=== PATIENT | female | born 1955 | race Caucasian/White ===

== ENCOUNTER 2022-12-18 08:28 | Outpatient (CLI) | payer OTHER, SELFPAY ==
[2022-12-18 20:11] LABS: Free T4 Free Thyroxine 1.29 ng/mL (0.78-2.19); Vitamin D 25 Hydroxy 22.2 ng/mL
[2022-12-18 20:23] LABS: Basophils Absolute Auto 0.1 K/mm3 (0.0-0.1); Basophils Percent Auto 0.7 % (0.2-1.2); Eosinophils Absolute Auto 0.5 K/mm3 (0-0.3); Hematocrit 44.8 % (37.0-47.0); Hemoglobin 14.3 g/dL (12.0-15.0); Immature Granulocyte Absolute 0.07 K/mm3 (0.00-0.031); Immature Granulocyte Percent A 0.6 % (0-0.5); Lymphocytes Absolute Auto 3.59 K/mm3 (0.9-3.2); Lymphocytes Percent Auto 30.5 % (18.3-44.2); Mean Corpuscular HGB Conc 31.9 g/dl (32-36); Mean Corpuscular Hemoglobin 30.7 pg (26-34); Mean Corpuscular Volume 96.1 fl (80-100); Mean Platelet Volume 10.8 fl (7.4-10.4); Monocytes Percent Auto 8.2 % (2.6-8.5); Neutrophils Absolute Auto 6.6 K/mm3 (1.3-6.7); Platelet Count Result 309 k/mm3 (150-375); Red Blood Count 4.66 M/mm3 (4.2-5.4); Red Cell Distribution Width 13.5 % (11.5-14.5); White Blood Count 11.8 K/mm3 (4.5-10.0)
[2022-12-18 20:36] LABS: Alanine Aminotransferase 22 U/L (6-35); Alkaline Phosphatase 91 U/L (38-126); Anion Gap 5 mmol/L (8-16); Aspartate Amino Transferase 45 U/L (14-36); Bilirubin,Total 0.5 mg/dL (0.2-1.3); Blood Urea Nitrogen 11 mg/dL (7-17); Calcium 9.8 mg/dL (8.4-10.2); Carbon Dioxide 28 mmol/L (22-30); Chloride 106 mmol/L (98-107); Cholesterol 173 mg/dL (0-200); Estimated Glomerular Filt Rate > 60; Glucose 77 mg/dL (65-110); HDL Direct 41 mg/dL; Potassium 4.5 mmol/L (3.4-5.0); Sodium 139 mmol/L (137-145); Triglycerides 113 mg/dL (<150)
[2022-12-18 20:49] LABS: LDL Cholesterol Direct 104 mg/dL
[2022-12-18 22:28] LABS: Hemoglobin A1C 5.9 % (<5.7)
== END 2022-12-18 08:29 | disposition home or self-care (01) ==
LOC: ANHGOSHLAB 08:30
PROVIDERS: PCP Family Medicine; Visit Provider Family Medicine
DX: E55.9 Vitamin D deficiency, unspecified (principal); R53.83 Other fatigue; Z13.220 Encounter for screening for lipoid disorders; R73.9 Hyperglycemia, unspecified
CPT/HCPCS: 36415; 80053; 80061; 82306; 83036; 84439; 84443; 85025

== ENCOUNTER 2023-04-16 02:15 | Day surgery (SDC) | payer OTHER, SELFPAY ==
[2023-03-31 13:43] VITALS: BMI 29.3
[2023-04-16 11:09] VITALS: BP 160/90; PULSE 75; RESP 20; TEMP 36.5; O2SAT 99; BMI 28.2
[2023-04-16] MEDS: LACTATED RINGERS 1,000 ML 150 ML IV CONT (11:22)
--- NOTE | 2023-04-16 11:35 | PM.HPGS ---
History of Present Illness History of Present Illness Consent: Risks, benefits, and alternatives have been discussed and questions answered. Patient agrees to proceed with procedure. Chief complaint: neoplasm screening Narrative: Tiesha Saucedo is a 67 year old female Presents for screening colonoscopy. Patient's current weight appetite and bowel movements are normal. Patient denies abdominal pain. She has had no bleeding. Family history noncontributory. Review of Systems Review of Systems: Review of systems noncontributory. [facility] Past Medical History Medical History Anxiety Chronic pancreatitis Surgical History Surgical History H/O tubal ligation History of thoracic surgery Hx of rotator cuff surgery Family History Family History Mother Breast cancer Cerebrovascular accident Sibling Alcoholism Thyroid disorder Grandparent Breast cancer Social History Social History Smoking packs per day: 0.5 Smoking cigarettes per day: 10.0 Smoking status: Current every day smoker Tobacco type: cigarettes Additional smoking assessment comments: 1/2 pack per day Alcohol intake: former Substance use: current Substance use type: marijuana Other substance usage details: 2X weekly Lack of Transportation: No Lack of Food: Never True Current Housing: I Have Housing Concerned About Future Housing: No Difficulty Paying Gas/Electric Bills: No Difficulty Paying for Meds: No Currently Unemployed: No Education: High School Diploma/GED Difficulty w/ Childcare or Family Care: No Living arrangements: alone Gender identity (if verbalized by the patient): Female Spiritual care concerns: No Agree to blood products: Yes Meds Home Medications and Allergies Home Medications Medication Instructions Recorded Confirmed Type ergocalciferol (vitamin D2) 1,250 1,250 mcg PO WEEKLY #13 caps 02/19/23 03/31/23 Rx mcg (50,000 unit) capsule Allergies Allergy/AdvReac Type Severity Reaction Status Date / Time No Known Allergies Allergy Verified 04/16/23 11:07 Vital Signs Vital Signs - 24 hr 04/16/23 11:09 Temperature 97.7 F Pulse Rate 75 Respiratory Rate 20 Blood Pressure 160/90 H Pulse Oximetry 99 Oxygen Delivery Room Air Exam Narrative: Physical exam reveals patient to be alert. Vital signs stable. HEENT exam is unremarkable. Patient is anicteric. Lungs are clear to auscultation and percussion. Heart is without murmur or extra sounds. Abdomen bowel sounds are present soft nontender with no organomegaly. Digital external rectal exam is normal. Assessment and Plan Assessment and plan (1) Encounter for screening colonoscopy: Code(s): Z12.11 - Encounter for screening for malignant neoplasm of colon Status: Acute Assessment and Plan: Patient presents today on referral for screening colonoscopy. Further recommendations may be given after endoscopy.
--- NOTE | 2023-04-16 12:08 | WPDANESEPP ---
Anes - Eval Pre Procedure Procedure: Operation Date: 04/16/23 11:30 Proposed Procedures p Screening Colonoscopy - Robby Trujillo MD Date/Time: 04/16/23 12:08 Surgeon: Colonoscopy Pre Op Diagnosis: neoplasm screening Patient Data Age: 67 Gender: F Height: 1.63 m Weight: 74.6 kg Last Vital Signs Temp 97.7 F 04/16/23 11:09 Pulse 75 04/16/23 11:09 Resp 20 04/16/23 11:09 BP 160/90 H 04/16/23 11:09 Pulse Ox 99 04/16/23 11:09 O2 Del Method Room Air 04/16/23 11:09 Allergies Allergy/AdvReac Type Severity Reaction Status Date / Time No Known Allergies Allergy Verified 04/16/23 11:07 Home Medications Medication Instructions Recorded Confirmed Type ergocalciferol (vitamin D2) 1,250 1,250 mcg PO WEEKLY #13 caps 02/19/23 03/31/23 Rx mcg (50,000 unit) capsule Patient hx anesthesia problems: none Family hx anesthesia problems: none Results Review: All pre-operative results and documents have been reviewed as part of the pre-operative evaluation. [facility] Past Medical History Medical History Anxiety Cardiac murmur Chronic pancreatitis GERD (gastroesophageal reflux disease) Surgical History Surgical History H/O tubal ligation History of thoracic surgery Hx of rotator cuff surgery Family History Family History Mother Breast cancer Cerebrovascular accident Sibling Alcoholism Thyroid disorder Grandparent Breast cancer Social History Social History Smoking packs per day: 0.5 Smoking cigarettes per day: 10.0 Smoking status: Current every day smoker Tobacco type: cigarettes Additional smoking assessment comments: 1/2 pack per day Alcohol intake: former Substance use: current Substance use type: marijuana Other substance usage details: 2X weekly Lack of Transportation: No Lack of Food: Never True Current Housing: I Have Housing Concerned About Future Housing: No Difficulty Paying Gas/Electric Bills: No Difficulty Paying for Meds: No Currently Unemployed: No Education: High School Diploma/GED Difficulty w/ Childcare or Family Care: No Living arrangements: alone Gender identity (if verbalized by the patient): Female Spiritual care concerns: No Agree to blood products: Yes Exam Day of Procedure 04/16/23 12:08
--- NOTE | 2023-04-16 12:11 | P.PNAN_ITS ---
Anes - Eval Final PreProcedure Day of Procedure 04/16/23 12:11 Patient weight: normal Heart: regular rate and rhythm Lungs: clear to auscultation Airway: Mallampati scale class II Neurological: alert and oriented Last oral intake: >/= 8 hours ASA classification: III Emergent: no Anesthetic plan: proceed Results Review: All pre-operative results and documents have been reviewed as part of the pre- operative evaluation. Informed Consent: The patient's anesthetic plan and its attendant risks and benefits were discussed with the patient/family/POA. Questions were solicited and answers provided to the satisfaction of the patient/family/POA.
[2023-04-16 12:35] VITALS: BP 129/77; PULSE 74; RESP 20; O2SAT 94
[2023-04-16 12:45] VITALS: BP 144/83; PULSE 77; RESP 20; O2SAT 96
[2023-04-16 12:55] VITALS: BP 145/77; PULSE 70; RESP 25; O2SAT 98
== END 2023-04-16 13:09 | disposition home or self-care (01) ==
PROVIDERS: PCP Family Medicine; Visit Provider Internal Medicine Gastroenterology
PROC: 0DJD8ZZ Inspection of Lower Intestinal Tract, Via Natural or Artificial Opening Endoscopic (ICD-10-PCS; CPT 45378; principal; 2023-04-16 11:30)
DX: Z12.11 Encounter for screening for malignant neoplasm of colon (principal); D12.2 Benign neoplasm of ascending colon; K63.5 Polyp of colon; K57.30 Diverticulosis of large intestine without perforation or abscess without bleeding; K64.8 Other hemorrhoids; F17.210 Nicotine dependence, cigarettes, uncomplicated; F12.90 Cannabis use, unspecified, uncomplicated
CPT/HCPCS: 45385; 88305; J2704; J7120

== ENCOUNTER 2023-04-28 09:03 | Outpatient (CLI) | payer OTHER, SELFPAY ==
--- NOTE | 2023-04-28 | ECHO_ITS ---
Patient Info Name: Tiesha Saucedo Age: 67 years : 1955 Gender: Female Ht: 64 in Wt: 170 lbs BSA: 1.89 m2 HR: 72 bpm BP: 140 / 87 mmHg Heart Rhythm: Sinus Rhythm Technical Quality: Good Exam Date: 04/28/2023 9:40 AM Exam Location: [facility] Patient Status: Outpatient Admit Date: 04/28/2023 Staff Ordering Physician: Afua Tomlinson DO Packing Shed Supervisor: Charlee Arrington RDCS Attending Provider: Afua Tomlinson DO Referring Physician: Davi MCCLAIN; Exam Type: CA echo doppler color flow Study Info Indications - new heart murmur Complete two-dimensional, color flow and Doppler transthoracic echocardiogram is performed. Summary 1. Complete two-dimensional, color flow and Doppler transthoracic echocardiogram is performed. 2. Left ventricular chamber dimension is normal. 3. Left ventricular systolic function is normal, estimated at 60-65%. 4. There is mild concentric increased left ventricular wall thickness. 5. The left ventricular diastolic function is grade I diastolic dysfunction. 6. E/e' 14 is mildly elevated. 7. Left atrial chamber dimension is moderately enlarged. 8. There is mild mitral valve regurgitation. 9. No pulmonary hypertension, estimated pulmonary arterial systolic pressure is 22 mmHg. Left Ventricle E/e' 14 is mildly elevated. Left ventricular chamber dimension is normal. Left ventricular systolic function is normal, estimated at 60-65%. There is mild concentric increased left ventricular wall thickness. The left ventricular diastolic function is grade I diastolic dysfunction. Right Ventricle Right ventricular systolic function is normal and with normal TAPSE 2.9 cm. Right ventricular chamber dimension is normal. Left Atria Left atrial chamber dimension is moderately enlarged. Right Atria Right atrial chamber dimension is normal. Aortic Valve The aortic valve is trileaflet. There is no aortic valve stenosis. There is no aortic valve regurgitation. Pulmonic Valve There is no pulmonic regurgitation. Mitral Valve There is no mitral valve stenosis. There is mild mitral valve regurgitation. Tricuspid Valve There is no tricuspid valve regurgitation. No pulmonary hypertension, estimated pulmonary arterial systolic pressure is 22 mmHg. Pericardium/Pleural There is no pericardial effusion. Inferior Vena Cava Normal inferior vena cava with >50% collapse upon inspiration consistent with normal right atrial pressure, 5 mmHg. Aorta The aortic root size at the sinus of Valsalva is normal. Left Ventricular Outflow Tract Name Value Normal LVOT 2D LVOT Diameter 1.9 cm LVOT Doppler LVOT Peak Gradient 11 mmHg LVOT Mean Gradient 5 mmHg LVOT VTI 33 cm LVOT VTI/AV VTI Ratio 0.9 LVOT Stroke Volume 97 ml LVOT CO 6.1 l/min LVOT CI 3.2 l/min/m2 Pulmonic Valve Name Value Normal
== END 2023-04-28 09:04 | disposition home or self-care (01) ==
PROVIDERS: PCP Family Medicine; Visit Provider Family Medicine
DX: R01.1 Cardiac murmur, unspecified (principal); I34.0 Nonrheumatic mitral (valve) insufficiency
CPT/HCPCS: 93306

== ENCOUNTER → 2023-05-28 10:53 | Outpatient (CLI) | payer OTHER, SELFPAY ==
--- NOTE | ~2023-05-28 | MM_ITS ---
EXAMINATION: MM screening maya BI w basia HISTORY: Screening TECHNIQUE: Craniocaudal and mediolateral oblique 3-D tomosynthesis images were obtained and synthetic 2-D images were generated. CAD analysis was submitted and interpreted. COMPARISON: 03/30/2014 BREAST PARENCHYMAL COMPOSITION: There are scattered areas of fibroglandular density. FINDINGS: There is no evidence of suspicious mass, calcification, or architectural distortion to sugg est malignancy in either breast. There has been no suspicious interval change. IMPRESSION: 1. No mammographic evidence of malignancy. 2. Recommend routine screening mammography in one year. BI-RADS Category 1: Negative Reviewed, dictated and finalized at location A.
--- NOTE | ~2023-05-28 | DEXA_ITS ---
Bone Density Report Name: MARI VILLALOBOS Age: 67 Sex: Female Ethnicity: White Date of : 1955 Indication: postmenopausal; screening for osteoporosis; prior fracture; Referring Provider: TASHA KEENAN Study: Bone densitometry was performed. Exam Date: May 28, 2023 Accession number: [id number] Bone Density: Region BMD T-score Z-score Classification AP Spine (L1-L4) 0.922 -1.1 0.7 Osteopenia Femoral Neck (Left) 0.637 -1.9 -0.4 Osteopenia Total Hip (Left) 0.817 -1.0 0.2 Normal Femoral Neck (Right) 0.641 -1.9 -0.3 Osteopenia Total Hip (Right) 0.808 -1.1 0.2 Osteopenia Total Hip Mean 0.813 -1.1 0.2 Osteopenia World Health Organization criteria for BMD impression classify patients as: Normal (T-score at or above -1.0), Osteopenia (T-score between -1.0 and -2.5), or Osteoporosis (T-score at or below -2.5). 10-year Fracture Risk: FRAX not reported because: Prior hip or vertebral fracture Clinical Information Provided by Patient: Have had a previous hip or vertebral fracture Has had a low trauma fracture Smokes Has used the following medications: Vitamin D Patient maximum height was 64.0 Menopause Age: 52 No regular weight bearing exercise Drinks caffeinated beverages Onset of menses at age 19 Number of children 2 Impression: The patient has low bone mass, based on the Left Femoral Neck T-score. The patient has risk factors, including: smoking, previous fracture. Discussion: INCREASED RISK OF FRACTURE DUE TO HISTORY OF FRACTURE. The patient's previous fracture puts the patient at high risk of a future fracture. In untreated patients, the risk of osteoporotic fracture increases approximately two-fold for each 1.0 SD decrease in T-score. Low bone density is not the only risk factor for fracture; also consider factors such as patient's age, frailty or poor health, risk of falling, risk of injury, previous osteoporotic fracture, family history of osteoporosis, cigarette smoking, low body weight, etc. Not everyone with a low trauma fracture has osteoporosis; osteomalacia and other metabolic bone disorders should also be considered. Patients who have osteoporosis should be evaluated for specific diseases and conditions (secondary causes) that may cause or contribute to bone loss and fracture risk. National Osteoporosis Foundation (NOF) recommends pharmacologic intervention for patients with a prior hip or vertebral fracture regardless of BMD T-score. The patient should follow a healthful lifestyle (good nutrition with adequate calcium and vitamin D, and appropriate weight-bearing exercise). Follow-Up: Consider a repeat BMD and Vertebral Fracture Assessment (VFA) exam in 2 years or sooner if medically necessary, to reassess this patient's status. Reported by: FARNAZ on 05/28/2023 11:27:00 AM.
== END ==
PROVIDERS: PCP Family Medicine; Visit Provider Family Medicine
DX: Z12.31 Encounter for screening mammogram for malignant neoplasm of breast (principal); Z78.0 Asymptomatic menopausal state; M85.88 Other specified disorders of bone density and structure, other site; M85.852 Other specified disorders of bone density and structure, left thigh; M85.851 Other specified disorders of bone density and structure, right thigh
CPT/HCPCS: 77063; 77067; 77080

== ENCOUNTER 2024-01-04 07:55 | Outpatient (CLI) | payer OTHER, SELFPAY ==
[2024-01-04 14:08] LABS: Alanine Aminotransferase 22 U/L (6-35); Alkaline Phosphatase 93 U/L (38-126); Anion Gap 2 mmol/L (8-16); Aspartate Amino Transferase 71 U/L (14-36); Basophils Absolute Auto 0.1 K/mm3 (0.0-0.1); Basophils Percent Auto 0.8 % (0.2-1.2); Bilirubin,Total 0.5 mg/dL (0.2-1.3); Blood Urea Nitrogen 10 mg/dL (7-17); Calcium 9.9 mg/dL (8.4-10.2); Carbon Dioxide 26 mmol/L (22-30); Chloride 108 mmol/L (98-107); Cholesterol 171 mg/dL (0-200); Eosinophils Absolute Auto 0.4 K/mm3 (0-0.3); Estimated Glomerular Filt Rate > 60; Glucose 90 mg/dL (65-110); HDL Direct 40 mg/dL; Hematocrit 45.2 % (37.0-47.0); Hemoglobin 14.5 g/dL (12.0-15.0); Immature Granulocyte Absolute 0.03 K/mm3 (0.00-0.031); Immature Granulocyte Percent A 0.3 % (0-0.5); Lymphocytes Absolute Auto 3.58 K/mm3 (0.9-3.2); Lymphocytes Percent Auto 39.3 % (18.3-44.2); Mean Corpuscular HGB Conc 32.1 g/dl (32-36); Mean Corpuscular Hemoglobin 30.9 pg (26-34); Mean Corpuscular Volume 96.4 fl (80-100); Mean Platelet Volume 10.8 fl (7.4-10.4); Monocytes Absolute Auto 0.7 K/mm3 (0.1-0.6); Neutrophils Absolute Auto 4.3 K/mm3 (1.3-6.7); Neutrophils Percent Auto 47.6 % (45.5-73.1); Platelet Count Result 311 k/mm3 (150-375); Potassium 4.4 mmol/L (3.4-5.0); Red Blood Count 4.69 M/mm3 (4.2-5.4); Red Cell Distribution Width 13.3 % (11.5-14.5); Sodium 136 mmol/L (137-145); Triglycerides 146 mg/dL (<150); White Blood Count 9.1 K/mm3 (4.5-10.0)
[2024-01-04 14:18] LABS: LDL Cholesterol Direct 115 mg/dL
[2024-01-04 15:02] LABS: Free T4 Free Thyroxine 1.12 ng/mL (0.78-2.19); Vitamin D 25 Hydroxy 53.8 ng/mL
== END 2024-01-04 07:56 | disposition home or self-care (01) ==
LOC: ANHGOSHLAB 07:56
PROVIDERS: PCP Family Medicine; Visit Provider Family Medicine
DX: R53.83 Other fatigue (principal); R73.03 Prediabetes; K86.1 Other chronic pancreatitis; E55.9 Vitamin D deficiency, unspecified; Z13.220 Encounter for screening for lipoid disorders; R74.8 Abnormal levels of other serum enzymes
CPT/HCPCS: 36415; 80053; 80061; 82306; 83036; 84439; 84443; 85025

== ENCOUNTER 2024-06-15 08:04 | Outpatient (CLI) | payer OTHER, SELFPAY ==
--- NOTE | ~2024-06-15 | US_ITS ---
US right upper quadrant INDICATION: Abnormal liver function tests. PROCEDURE: Realtime right upper abdominal ultrasound. COMPARISON: No prior studies for comparison. FINDINGS: The pancreas is normal without focal mass or pancreatic ductal dilation. Liver echotexture is normal without focal mass or intrahepatic biliary dilatation. There is normal directional flow i n the portal vein. Gallbladder is contracted limiting evaluation for gallstones or gallbladder wall thickening. Common bile duct measures 4 mm. No sonographic Mota's sign. IMPRESSION: 1: Contracted gallbladder. Otherwise, unremarkable limited abdominal ultrasound. Reviewed, dictated and finalized at location B. IMPRESSION: 1: Contracted gallbladder. Otherwise, unremarkable limited abdominal ultrasound .
--- NOTE | ~2024-06-15 | CT_ITS ---
CT Scan of the Chest without Contrast: Clinical Indication: Lung cancer screening, nicotine dependence Technique: Contiguous sections were acquired throughout the chest without intravenous contrast. Dose reduction technique was used on this scan by utilizing automated exposure control and iterative recon struction technique. The dose-length product (DLP) was 81.37 mGy-cm. Findings: There is no evidence of any significant mediastinal, hilar or axillary lymphadenopathy. There are ath erosclerotic calcifications of the aorta and coronary arteries. Calcified left hilar lymph nodes are present.. There is no evidence of pleural or pericardial effusion. The lungs are clear, aside from linear scarring at the anteromedial right upper lobe. Images through the upper abdomen reveal calcified splenic granulomas. Impression: Lung RADS 1: Negative. 12 month follow-up screening CT advised. Reviewed, dictated and finalized at [facility]. Impression: Lung RADS 1: Negative. 12 month follow-up screening CT advised.
== END 2024-06-15 08:05 | disposition home or self-care (01) ==
LOC: MICIMG 08:05
PROVIDERS: PCP Family Medicine; Visit Provider Nurse Practitioner
DX: R74.8 Abnormal levels of other serum enzymes (principal); Z87.891 Personal history of nicotine dependence
CPT/HCPCS: 71271; 76705

== ENCOUNTER 2024-10-28 07:52 | Outpatient (CLI) | payer OTHER, SELFPAY ==
[2024-10-28 18:01] LABS: Alanine Aminotransferase 25 U/L (6-35); Albumin Level 4.3 g/dL (3.5-5.1); Alkaline Phosphatase 106 U/L (38-126); Anion Gap 10 mmol/L (4-12); Aspartate Amino Transferase 44 U/L (14-36); Bilirubin,Total 0.5 mg/dL (0.2-1.3); Blood Urea Nitrogen 15 mg/dL (7-17); Carbon Dioxide 24 mmol/L (22-30); Chloride 102 mmol/L (98-107); Estimated Glomerular Filt Rate > 60; Glucose 86 mg/dL (65-110); Potassium 4.3 mmol/L (3.4-5.0); Sodium 136 mmol/L (137-145)
[2024-10-28 18:28] LABS: Hepatitis B Surface Antigen Negative (Negative)
[2024-10-28 18:45] LABS: Hepatitis C Virus Antibody Negative (Negative)
[2024-10-28 18:52] LABS: Iron 93 ug/dL (37-170)
[2024-10-28 19:02] LABS: Percent Iron Saturation 24 % (20-50)
[2024-10-28 20:58] LABS: HIV 1/2 Ab P24 Ag Result Negative (Negative)
[2024-10-31 20:24] LABS: Immunoglobulin A 116 mg/dL (70-320); TTG IGA AB <1.0 U/mL
--- OUTSIDE RECORDS SUMMARY | 2024-11-03 05:12 | XMS_ITS | Clinical Summary ---
Author Organization [facility] Address [address] [place] [id number] Care Team Providers Care Mounter Clarinets Name Role Phone Afua Tomlinson Primary Care Provider + Allergies No known active allergies Medications ergocalciferol (VITAMIN D) 50,000 unit capsule Take 1 capsule (50,000 Units total) by mouth once a week 3 Active pancrelipase (Creon) 36,000 units of lipase capsuleIndications :exocrine pancreatic insufficiency Take 2 capsules by mouth 3 (three) times a day with meals 2 capsules with meals, 1 with snacks 240 capsule 11 4 Active Active Problems Problem Noted Date Diagnosed Date Chronic pancreatitis ([facility]) 11/09/2023 Steatorrhea 11/09/2023 Immunizations Name Administration Dates Next Due Influenza, Quad, Adjuvantated, Intramuscular Influenza, Quadrivalent, Split, Intramuscular ,07/30/2016 Influenza, Quadrivalent, Spl it, Preservative Free, Intramuscular 08/06/2020 Influenza, Trivalent, Preservative Free, Intramu scular 10/14/2013 Pneumococcal Conjugate Pcv20 03/05/2023 ZOSTER Recombinant 03/05/2023 Social History Tobacco Use Types Packs/Day Years Used Date Smoking Tobacco: Every Day Cigarettes Tobacco Cessation:Ready to Q uit: Not Asked; Counseling Given: Not Answered Personal Safety Answer Date Recorded Getting School Help Needed Not on file 11/03 Comments No Sex and Gender Information Value Date Recorded Sex Assigned at Not on file Legal Sex Female 7:02 PM ABSTRACT SEARCHER Gender Identity Not on file Sexual Orientation Not on file Obstetrics History Last Filed Vital Signs Vital Sign Reading Time Taken Comments Blood Pressure 146/71 11/05/2023 2:12 PM ABSTRACT SEARCHER Pulse 83 11/05/2023 2:12 PM ABSTRACT SEARCHER Temperature - - Respiratory Rate - - Oxygen Saturation - - Inhaled Oxygen Concentration - - Weight 77.4 kg (170 lb 9.6 oz) 11/05/2023 2:12 P M ABSTRACT SEARCHER Height 162.6 cm (5' 4 ) 11/05/2023 2:12 PM ABSTRACT SEARCHER Body Mass Index 29.28 11/05/2023 2:12 PM ABSTRACT SEARCHER Plan of Treatment Health Maintenance Due Date Last Done Comments Breast Cancer Screening-Mammogram 1955 Colon Cancer Screening-Colonoscopy 1955 Depression Screening 1955 Fall Risk Assessment 1955 Hepatitis C Screening 1955 Osteoporosis Screening-Bone Density Scan 1955 DTaP/Tdap/Td Vaccine (1 - Tdap) 1968 Hepatitis B Screening 1975 Well Visit 65+ 2022 Zoster Vaccine (2 of 2) 04/30/2023 03/05/2023 Covid-19 Vaccine (4 - 2023-2 5 season) 2024 09/10/2022, 11/01/2021, 12/16/2020 Influenza Vaccine (#1) 2024 , 08/06/2020, 09/26/2019, Additional history exists Pneumococcal vaccine 65+ Completed 03/05/2023 Insurance [facility] [place] [facility] [place] Care Teams Mounter Clarinets Relationship Specialty Start Date End Date Afua Tomlinson DO [address] [place] [address] [id number] PCP - General Family Medicine 11/05/23
--- OUTSIDE RECORDS SUMMARY | 2024-11-03 05:12 | XMS_ITS | Patient Health Summary ---
Author Organization [facility] Address [address] [place] [address] Care Team Providers Care Solid Waste Engineer Name Role Phone Robel PARKER MD, Rob Chavez Primary Care Provider [phone] [facility],non-owned Affiliates and Associated Physician Practices is amultiple site organization consisting of ambulatory clinics and hospital sitesin [place], [place], [place] and [place]. This disclosure is being madepursuant to the Care Everywhere program and may not contain all information available regarding this patient. Last updated 18.[facility] [employer] Allergies No known active allergies Medications * Be aware that medications may not be up to date on this document. Alwaysverify current medications with the patient. * multivitamin daily (THERAGRAN) tablet Take 1 Tab by mouth daily with food. * fish oil/omega-3 fatty acids (FISH OIL) 1000 MG capsule Take 1000 mg by mouth daily. * Other Take 1 Tab by mouth daily. Vit B complex * vitamin C (ASCORBIC ACID) 500 MG tablet Take 500 mg by mouth daily. * Other Take 2 Tabs by mouth 2 times daily. 1000 mg AM and PM * calcium-vitamin D (CALTRATE PLUS D) 600-200 MG-UNIT tablet Take 1 Tab by mouth 2 times daily. Social History Tobacco Use Types Packs/Day Years Used Date Smoking Tobacco: Every Day Cigarettes 1 35 Alcohol Use Standard Drinks/Week Comments No 0 (1 standard drink = 0.6 oz pur e alcohol) Sex and Gender Information Value Date Recorded Sex Assigned at Not on file Gender Identity Not on file Sexual Orientation Not on file Last Filed Vital Signs Vital Sign Reading Time Taken Comments Blood Pressure 114/59 04/02/2010 10:48 AM CDT Pulse 62 04/02/2010 10:48 AM CDT Temperature 35.9 ??C (96.7 ??F) 04/02/2010 7:00 AM CD T Respiratory Rate - - Oxygen Saturation 93% 04/02/2010 10:48 AM CDT Inhaled Oxygen Concentration - - Weight 77.1 kg (170 lb) 04/02/2010 7:00 AM CDT Height 162.6 cm (5' 4 ) 04/01/2010 8:38 AM CDT Body Mass Index 29.18 04/01/2010 8:38 AM CDT Procedures * GROSS + MICRO EXAM(Performed 04/02/2010) * GROSS + MICRO EXAM(Performed 04/02/2010) Performed for Screen Malig Neop-Colon * US BREAST LEFT COMPLETE(Performed 03/27/2010) Performed for Lump or Mass in Breast * MAMMO BILAT DIAGNOSTIC(Performed 03/27/2010) Performed for Lump or Mass in Breast * GROSS + MICRO EXAM(Performed 02/14/2004) * GROSS + MICRO EXAM(Performed 05/12/1998) * CYTOLOGY NON-TACK PULLER MACHINE PANEL(Performed 05/09/1998) * GROSS + MICRO EXAM(Performed 05/09/1998) Results * GROSS + MICRO EXAM (04/02/2010 12:00 AM CDT) Only the most recent of5 resultswithin the time period is included. Result CASE NUMBER [id number] Comment: ORDERING PHYSICIAN ??FREIDA KENNEDY SPECIMEN TYPE ?Polyp Splenic Flexu Date ? 04/02/2010 Physician ?Massiel Kennedy Gross Description ? The specimen is received in two Formalin containers labeled with the patient's name, Tiesha Saucedo. The first container is labeled polyp, splenic flexure, and consists of one yellow cerda soft tissue fragment measuring 0.2 cm in the largest dimension. ??The specimen is inked, wrapped, and submitted entirely in cassette A. The second container is labeled polyp, sigmoid colon, and consists of one yellow cerda soft tissue fragment measuring 0.2 cm in the largest dimension. ??Additionally, several smaller fragments measuring <0.1 cm in the largest dimension are also present in the same container. ??The specimen is filtered, inked, wrapped, and submitted entirely in cassette B. MD elias Microscopic Exam ? Nos. 1 and 2 Sections show fragments of colonic mucosa with features of hyperplastic polyp. ??No atypia or malignancy is seen. ??Specimen No. 1 shows considerable biopsy artifact. MC/db Diagnosis ? I. ?Splenic flexure, biopsy -- ?Hyperplastic polyp II. ?? Sigmoid colon, polyp, biopsy -- ?Hyperplastic polyp MC/db Quality Checker ? db Pathologist ?Derick Robertson MD Snomed. ?04/03/2010 1058 <2> CPT code ? 71142 x 2 MISCELLANEOUS SAMPLE S / Unknown 04/02/2010 04/02/2010 1:56 PM CDT Historical Provider LAB - PATHOLOGY/C YTOLOGY ORDERABLES * US BREAST UNILATERAL LEFT (03/27/2010 10:45 AM CDT) Anatomical Region Laterality Modality Breast Left Ultrasound 03/27/2010 10:5 3 AM CDT Narrative 03/28/2010 9:52 AM CDT EXAMINATION: Bilateral digital diagnostic mammogram and left breast sonogram on 03/27/2010. INDICATION: Palpable left breasts lump. Routine mammogram right breast. TURBO OPERATOR: Rhianna Sen RT, RM FINDINGS: Computer assisted detection was ??utilized. ??The tissue density is dense. Three views of each breast are obtained including the spot compression views of the left breast with a marker at the 6:00 position of the left breast. There is no discrete mass seen at the areas of clinical concern near the marker. I do not see a suspicious mass, suspicious calcification or architectural distortion in either breast. In view of the patient's history, sonogram of the left breast is performed. There is no mass or a lesion seen at the 6:00 position which is the area of clinical concern. There is no solid or cystic mass or suspicious lesion present in the left breast. ASSESSMENT: BIRADS Category 1: ?? Negative mammogram. RECOMMENDATION: Bilateral mammogram in one year. [facility] staff will contact and schedule patients with BIRADS categories 0, 4, and 5. Procedure Note Elana Yip MD / Zonia Kenny (Ce) - 03/27/2010 EXAMINATION: Bilateral digital diagnostic mammogram and left breast sonogram on 03/27/2010. INDICATION: Palpable left breasts lump. Routine mammogram right breast. TURBO OPERATOR: Rhianna Sen RT, RM FINDINGS: Computer assisted detection was utilized. The tissue density is dense. Three views of each breast are obtained including the spot compression views of the left breast with a marker at the 6:00 position of the left breast. There is no discrete mass seen at the areas of clinical concern near the marker. I do not see a suspicious mass, suspicious calcification or architectural distortion in either breast. In view of the patient's history, sonogram of the left breast is performed. There is no mass or a lesion seen at the 6:00 position which is the area of clinical concern. There is no solid or cystic mass or suspicious lesion present in the left breast. ASSESSMENT: BIRADS Category 1: Negative mammogram. RECOMMENDATION: Bilateral mammogram in one year. [facility] staff will contact and schedule patients with BIRADS categories 0, 4, and 5. Che Kamara MD US ORDERABLES * G0204 ARYAN DIAG DIRECT DIG IMAGE BILATERAL (03/27/2010 10:42 AM CDT) Anatomical Region Laterality Modality Bilateral Mammography 03/27/2010 10:5 3 AM CDT Narrative 03/28/2010 9:51 AM CDT EXAMINATION: Bilateral digital diagnostic mammogram and left breast sonogram on 03/27/2010. INDICATION: Palpable left breasts lump. Routine mammogram right breast. TURBO OPERATOR: RT Nicky, RM FINDINGS: Computer assisted detection was ??utilized. ??The tissue density is dense. Three views of each breast are obtained including the spot compression views of the left breast with a marker at the 6:00 position of the left breast. There is no discrete mass seen at the areas of clinical concern near the marker. I do not see a suspicious mass, suspicious calcification or architectural distortion in either breast. In view of the patient's history, sonogram of the left breast is performed. There is no mass or a lesion seen at the 6:00 position which is the area of clinical concern. There is no solid or cystic mass or suspicious lesion present in the left breast. ASSESSMENT: BIRADS Category 1: ?? Negative mammogram. RECOMMENDATION: Bilateral mammogram in one year. [facility] staff will contact and schedule patients with BIRADS categories 0, 4, and 5. Procedure Note Elana Yip MD / Zonia Kenny (Ce) - 03/28/2010 EXAMINATION: Bilateral digital diagnostic mammogram and left breast sonogram on 03/27/2010. INDICATION: Palpable left breasts lump. Routine mammogram right breast. TURBO OPERATOR: RT Nicky, RM FINDINGS: Computer assisted detection was utilized. The tissue density is dense. Three views of each breast are obtained including the spot compression views of the left breast with a marker at the 6:00 position of the left breast. There is no discrete mass seen at the areas of clinical concern near the marker. I do not see a suspicious mass, suspicious calcification or architectural distortion in either breast. In view of the patient's history, sonogram of the left breast is performed. There is no mass or a lesion seen at the 6:00 position which is the area of clinical concern. There is no solid or cystic mass or suspicious lesion present in the left breast. ASSESSMENT: BIRADS Category 1: Negative mammogram. RECOMMENDATION: Bilateral mammogram in one year. [facility] staff will contact and schedule patients with BIRADS categories 0, 4, and 5. Che Kamara MD MAMMO ORDERAB LES * CYTOLOGY NON-TACK PULLER MACHINE PANEL (05/09/1998 3:43 PM CDT) Result CASE NUMBER [id number] Comment: ORDERING PHYSICIAN ??ROB ONOFRE SPECIMEN TYPE ?Fluid-rt Date ? 05/09/1998 Physician ?Mihir Specimen Adequacy ?Satisfactory for Evaluation but Limited Obscuring inflammation. *Diagnosis ? Negative ??abundant WBC's. *Comment ? 5.5 cc. of milky, yellow fluid. 2 slides made. Snomed. ?05/18/1998 1638 <1> Pathologist ?Kyler Page M.D. MISCELLANEOUS SAMPLES / Unknown 05/09/1998 3:43 PM CDT 05/09/1998 3:43 PM CDT Historical Provider LAB - PATHOLOGY/C YTOLOGY ORDERABLES Care Teams Solid Waste Engineer Relationship Specialty Start Date End Date Rob Huston III, MD [address] [place] [id number] PCP - General 04/02/10
--- OUTSIDE RECORDS SUMMARY | 2024-11-03 05:12 | XMS_ITS | Clinical Summary ---
Author Organization [facility] Address [address] [place] [address] Care Team Providers Care Mine Wirer Name Role Phone Robel PARKER MD, Jarred Chavez Primary Care Provider [phone] Source Comments [facility],non-owned Affiliates and Associated Physician Practices is amultiple site organization consisting of ambulatory clinics and hospital sitesin [place], [place], [place] and [place]. This disclosure is being madepursuant to the Care Everywhere program and may not contain all information available regarding this patient. Last updated 18.[facility] Allergies No known active allergies Medications * Be aware that medications may not be up to date on this document. Alwaysverify current medications with the patient. Medication Sig Dispensed Refills Start Date End Date Status multivitamin daily (THERAGRAN) tablet Take 1 Tab by mouth daily with food. Active fish oil/omega-3 fatty acids (FISH OIL) 1000 MG capsule Take 1000 mg by mouth daily. Active Other Take 1 Tab by mouth daily. Vit B complex Active vitamin C (ASCORBIC ACID) 500 MG tablet Take 500 mg by mouth daily. Active Other Take 2 Tabs by mouth 2 times daily. 1000 mg AM and PM Active calcium-vitamin D (CALTRATE PLUS D) 600-200 MG-UNIT tablet Take 1 Tab by mouth 2 times daily. Active Family History Medical History Relation Name Comments Cancer Mother breast Relation Name Status Comments Mother Social History Tobacco Use Types Packs/Day Years [...] Mass Index 29.18 04/01/2010 8:38 AM CDT Plan of Treatment Health Maintenance Due Date Last Done Comments BONE DENSITY TESTING 1955 COLOGUARD (AGES 45-75) - COL ON CA SCREENING 1957 COLON MONITORING 1957 COLONOSCOPY - COLON CA SCREENING 1957 CT COLONOGRAPHY - COLON CA SCREENING 1957 Colorectal Cancer Screening 1957 FIT - COLON CA SCREENING 1957 FLEX SIG - COLON CA SCREENING 1957 LIPID TESTING 1957 HEPATITIS C SCREENING 08/17/1975 DTAP/TDAP/TD VACCINES (1 - Tdap) 1976 PNEUMOCOCCAL VACCINE 50+ (1 of 2 - PCV) 1976 ZOSTER VACCINE (1 of 2) 2007 MAMMOGRAM 03/27/2012 03/27/2010 COVID-19 VACCINE ( - 2023-2 5 season) 2024 INFLUENZA VACCINE (#1) 2024 DEPRESSION SCREENING 10/12/2024 MEDICARE AWV ? CALENDAR YEAR 2024 Respiratory Syncytial Virus (RSV) Vaccine Pt: or over 60 yrs (1 - 1-dose 75+ series) 2032 HEPATITIS B VACCINE Aged Out No longe r eligible based on patient's age to complete this topic HIB VACCINE Aged Out No longer eligi ble based on patient's age to complete this topic HPV VACCINE Aged Out No longer eligi ble based on patient's age to complete this topic MENINGOCOCCAL (Group B) VACCINE Aged Out No longer eligible based on patient's age to complete this topic MENINGOCOCCAL VACCINE Aged Out No jennifer joaquin eligible based on patient's age to complete this topic Procedures Procedure Name Priority Date/Time Associated Diagnosis Comments MAMMO BILAT DIAGNOSTIC Routine 03/27/2010 10:42 AM CDT Lump or Mass in Breast from Last 3 Months or Most Recently Relevant to Health Maintenance Results * G0204 ARYAN DIAG DIRECT DIG IMAGE BILATERAL (03/27/2010 10:42 AM CDT) Anatomical Region Laterality Modality Bilateral Mammography 03/27/2010 10:5 3 AM CDT Narrative 03/28/2010 9:51 AM CDT EXAMINATION: Bilateral digital diagnostic mammogram and left breast sonogram on 03/27/2010. INDICATION: Palpable left breasts lump. Routine mammogram right breast. SCHOOL BUS OPERATOR: RT Nicky, RM FINDINGS: Computer assisted [...] mammogram. RECOMMENDATION: Bilateral mammogram in one year. [facility] staff will contact and schedule patients with BIRADS categories 0, 4, and 5. Procedure Note Elana Yip MD / Zonia Kenny (Ce) - 03/28/2010 EXAMINATION: Bilateral digital diagnostic mammogram and left breast sonogram on 03/27/2010. INDICATION: Palpable left breasts lump. Routine mammogram right breast. SCHOOL BUS OPERATOR: RT Nicky, RM FINDINGS: Computer assisted [...] mammogram. RECOMMENDATION: Bilateral mammogram in one year. [facility] staff will contact and schedule patients with BIRADS categories 0, 4, and 5. Che Kamara MD MAMMO ORDERAB LES from Last 3 Months or Most Recently Relevant to Health Maintenance Care Teams Mine Wirer Relationship Specialty Start Date End Date Jarred Huston III, MD [address] [place] [address] PCP - General 04/02/10
--- OUTSIDE RECORDS SUMMARY | 2024-11-03 05:12 | XMS_ITS | Referral Summary ---
Author Organization [facility] Address [address] [address] Care Team Providers Care Operations Mgr Name Role Phone Robel PARKER MD, Jarred Chavez Primary Care Provider [phone] Source Comments [facility] [employer],non-owned Affiliates and Associated Physician Practices is amultiple site organization consisting of ambulatory clinics and hospital sitesin [place], [place], [place] and [place]. This disclosure is being madepursuant to the Care Everywhere program and may not contain all information available regarding this patient. Last updated 18.[facility] [employer] Allergies No known active allergies Medications * [...] Tab by mouth 2 times daily. Active Social History Tobacco Use Types Packs/Day Years [...] 04/01/2010 8:38 AM CDT Plan of Treatment Not on file Procedures Procedure Name Priority Date/Time Associated Diagnosis [...] left breasts lump. Routine mammogram right breast. CLAIMS ADJUSTER: Rhianna Sen RT, RM FINDINGS: Computer assisted [...] mammogram. RECOMMENDATION: Bilateral mammogram in one year. [facility] staff will contact and schedule patients with BIRADS categories 0, 4, and 5. Procedure Note Elana Yip MD / Zonia Kenny (Ce) - 03/28/2010 EXAMINATION: Bilateral digital diagnostic mammogram and left breast sonogram on 03/27/2010. INDICATION: Palpable left breasts lump. Routine mammogram right breast. CLAIMS ADJUSTER: Rhianna Sen RT, RM FINDINGS: Computer assisted [...] mammogram. RECOMMENDATION: Bilateral mammogram in one year. [facility] staff will contact and schedule patients with BIRADS categories 0, 4, and 5. Che Kamara MD MAMMO ORDERAB LES from Last 3 Months or Most Recently Relevant to Health Maintenance Care Teams Operations Mgr Relationship Specialty Start Date End Date Jarred Huston III, MD [address] [place] [address] PCP - General 04/02/10
--- OUTSIDE RECORDS SUMMARY | 2024-11-03 05:12 | XMS_ITS | Referral Summary ---
Author Organization [facility] Address [address] [place] [id number] Care Team Providers Care Cullet Washer Name Role Phone Afua Tomlinson Primary Care [...] Date Chronic pancreatitis ([facility]) 11/09/2023 Steatorrhea 11/09/2023 Immunizations Name Administration Dates [...] on file Legal Sex Female 7:02 PM PS[facility]CHOLOGISTS Gender Identity Not on file Sexual Orientation Not on file Last Filed Vital Signs Vital Sign Reading Time Taken Comments Blood Pressure 146/71 11/05/2023 2:12 PM PSYCHOLOGISTS Pulse 83 11/05/2023 2:12 PM [facility]OLOG[facility] Temperature - - Respiratory Rate - - Oxygen Saturation - - Inhaled Oxygen Concentration - - Weight 77.4 kg (170 lb 9.6 oz) 11/05/2023 2:12 P M PS[facility]CHOLOG[facility] Height 162.6 cm (5' 4 ) 11/05/2023 2:12 PM PSYCHOLOGISTS Body Mass Index 29.28 11/05/2023 2:12 PM PSYCHOLOGISTS Plan of Treatment Not on file Insurance [facility] Care Teams Cullet Washer Relationship Specialty Start Date End Date Afua Tomlinson DO [address] [place] [address] [address] GONZ[address]ES [address] [place] [address], [place] [address] PCP - General Family Medicine 11/05/23
== END 2024-10-28 07:53 | disposition home or self-care (01) ==
LOC: ANHGOSHLAB 07:53
PROVIDERS: PCP Family Medicine; Visit Provider Family Medicine
DX: R73.03 Prediabetes (principal); R74.8 Abnormal levels of other serum enzymes
CPT/HCPCS: 36415; 80053; 82784; 83036; 83540; 83550; 84443; 86364; 86703; 86803; 87340; G0432

== ENCOUNTER 2025-03-07 09:41 | Outpatient (CLI) | payer OTHER, SELFPAY ==
--- OUTSIDE RECORDS SUMMARY | 2025-03-07 09:44 | XMS_ITS | Clinical Summary ---
Author Organization [facility] Address [address] [place] [id number] Care Team Providers Care Statistical Consultant Name Role Phone Afua Tomlinson Primary Care [...] Problem Noted Date Diagnosed Date Chronic pancreatitis 11/09/2023 Steatorrhea 11/09/2023 Immunizations Immunization Administration Dates Next Due Influenza, Quad, Adjuvantated, Intramuscular Influenza, Quadrivalent, Split, Intramuscular ,07/30/2016 Influenza, Quadrivalent, Spl it, Preservative Free, Intramuscular 08/06/2020 Influenza, Trivalent, Preservative Free, Intramu scular 10/14/2013 Pneumococcal Conjugate Pcv20 03/05/2023 ZOSTER Recombinant 03/05/2023 Social History Tobacco Use Types Packs/Day Years Used Date Smoking Tobacco: Every Day Cigarettes Tobacco Cessation:Ready to Q uit: Not Asked; Counseling Given: Not Answered AUDIT-C Answer Date Recorded Q1: How often do you have a drink containing alc ohol? Never 11/03/2024 Average Number of Drinks Not on file 025 Frequency of Binge Drinking Not on file 10/13 Comments No Sex and Gender Information Value Date Recorded Sex Assigned at Not on file Legal Sex Female 7:02 PM ENGLISH DRAWER Gender Identity Not on file Sexual Orientation Not on file Obstetrics History Last Filed Vital Signs Vital Sign Reading Time Taken Comments Blood Pressure 159/77 11/03/2024 3:07 PM ENGLISH DRAWER Pulse 66 11/03/2024 3:07 PM ENGLISH DRAWER Temperature - - Respiratory Rate - - Oxygen Saturation - - Inhaled Oxygen Concentration - - Weight 76.9 kg (169 lb 9.6 oz) 11/03/2024 3:07 P M ENGLISH DRAWER Height 162.6 cm (5' 4 ) 11/03/2024 3:07 PM ENGLISH DRAWER Body Mass Index 29.11 11/03/2024 3:07 PM ENGLISH DRAWER Plan of Treatment Health Maintenance Due Date [...] season) 2024 09/10/2022, 11/01/2021, 12/16/2020 Influenza Vaccine (Season Ended) 2025 09/10/2022, 08/06/2020, 09/26/2019, Additional history exists Pneumococcal vaccine 65+ Completed 03/05/2023 Medical Devices Implanted Type Area Area Plant Manager Device Identifier Shelf Expiration Date Model / Serial / Lot Cervical Spine Fusion Instrumentation Spine Cervical Insurance [facility] [address] [place] [id number] [facility] Care Teams Statistical Consultant Relationship Specialty Start Date End Date Afua Tomlinson DO [address] [place] [address] [place] [address] PCP - General Family Medicine 11/05/23
--- OUTSIDE RECORDS SUMMARY | 2025-03-07 09:44 | XMS_ITS | Clinical Summary ---
Author Organization [facility] Address [address] [place] [address] Care Team Providers Care Screen Machine Operator Name Role Phone Robel PARKER MD, Jarred Chavez Primary Care Provider [phone] Source Comments [facility],non-owned Affiliates and Associated Physician Practices is amultiple site organization consisting of ambulatory clinics and hospital sitesin [place], [place], [place] and [place]. This disclosure is being madepursuant to the Care Everywhere program and may not contain all information available regarding this patient. Last updated 18.[facility] Allergies No known active allergies Medications * Be aware that medications may not be up to date on this document. Alwaysverify current medications with the patient. multivitamin daily (THERAGRAN) tablet Take 1 Tab [...] drink = 0.6 oz pur e alcohol) Comments No Sex and Gender Information Value Date Recorded Sex Assigned at Not on file Legal Sex Female 6:19 AM DIRECTOR OF CONTRACTS Gender Identity Not on file Sexual Orientation Not on file Last Filed Vital Signs Vital Sign Reading Time Taken Comments Blood Pressure 114/59 04/02/2010 10:48 AM CDT Pulse 62 04/02/2010 10:48 AM CDT Temperature 35.9 C (96.7 F) 04/02/2010 7:00 AM CDT Respiratory Rate - - Oxygen Saturation 93% [...] COLON CA SCREENING 1957 LIPID TESTING 1957 MEDICARE AWV 12 MONTHS 1957 HEPATITIS C SCREENING 08/17/1975 DTAP/TDAP/TD VACCINES (1 - Tdap) 1976 PNEUMOCOCCAL VACCINE 50+ (1 of 2 - PCV) 1976 ZOSTER VACCINE (1 of 2) 2007 MAMMOGRAM 03/27/2012 03/27/2010 COVID-19 VACCINE ( - 2023-2 5 season) 2024 DEPRESSION SCREENING 10/12/2024 INFLUENZA VACCINE (Season Ended) 2025 Respiratory Syncytial Virus (RSV) Vaccine Pt: or [...] to complete this topic MENINGOCOCCAL (Group B) VACC INE SHARED DECISION-MAKING Aged Out No longer eligibl e based on patient's age to complete this topic MENINGOCOCCAL GROUPS A/C/Y/W VACCINE Aged Out No longer eligible b ased on patient's age to complete this topic [...] left breasts lump. Routine mammogram right breast. CABLE TELEVISION INSTALLER: RT Nicky, RM FINDINGS: Computer assisted detection [...] mammogram. RECOMMENDATION: Bilateral mammogram in one year. [facility] staff will contact and schedule patients with BIRADS categories 0, 4, and 5. Procedure Note Elana Yip MD / Zonia Kenny (Ce) - 03/28/2010 EXAMINATION: Bilateral digital diagnostic mammogram and left breast sonogram on 03/27/2010. INDICATION: Palpable left breasts lump. Routine mammogram right breast. CABLE TELEVISION INSTALLER: RT Nicky, RM FINDINGS: Computer assisted detection [...] mammogram. RECOMMENDATION: Bilateral mammogram in one year. [facility] staff will contact and schedule patients with BIRADS categories 0, 4, and 5. Che Kamara MD MAMMO ORDERABLES Edit ed Result - Final from Last 3 Months or Most Recently Relevant to Health Maintenance Insurance [employer] Care Teams Screen Machine Operator Relationship Specialty Start Date End Date Jarred Huston III, MD [address] [place] [id number] PCP - General 04/02/10
--- OUTSIDE RECORDS SUMMARY | 2025-03-07 09:44 | XMS_ITS | Referral Summary ---
Author Organization [facility] Address [address] [place] [id number] Care Team Providers Care Grinding Machine Operator Automatic Name Role Phone Afua Tomlinson Primary Care [...] on file Legal Sex Female 7:02 PM FEED CRUSHER OPERATOR Gender Identity Not on file Sexual Orientation Not on file Last Filed Vital Signs Vital Sign Reading Time Taken Comments Blood Pressure 159/77 11/03/2024 3:07 PM FEED CRUSHER OPERATOR Pulse 66 11/03/2024 3:07 PM FEED CRUSHER OPERATOR Temperature - - Respiratory Rate - - Oxygen Saturation - - Inhaled Oxygen Concentration - - Weight 76.9 kg (169 lb 9.6 oz) 11/03/2024 3:07 P M FEED CRUSHER OPERATOR Height 162.6 cm (5' 4 ) 11/03/2024 3:07 PM FEED CRUSHER OPERATOR Body Mass Index 29.11 11/03/2024 3:07 PM FEED CRUSHER OPERATOR Plan of Treatment Not on file Medical Devices Implanted Type Area Medical Records Field Technician Device Identifier Shelf Expiration Date Model / Serial / Lot Cervical Spine Fusion Instrumentation Spine Cervical Insurance [employer] Care Teams Grinding Machine Operator Automatic Relationship Specialty Start Date End Date Afua Tomlinson DO [address] [place] [address] DR GONZALES [address] [place] [id number] PCP - General Family Medicine 11/05/23
[2025-03-07 11:06] LABS: Basophils Absolute Auto 0.1 K/mm3 (0.0-0.1); Basophils Percent Auto 0.5 % (0.2-1.2); Eosinophils Absolute Auto 0.3 K/mm3 (0-0.3); Eosinophils Percent Auto 2.4 % (0-4.4); Hematocrit 43.1 % (37.0-47.0); Hemoglobin 14.1 g/dL (12.0-15.0); Immature Granulocyte Absolute 0.05 K/mm3 (0.00-0.031); Immature Granulocyte Percent A 0.4 % (0-0.5); Lymphocytes Percent Auto 25.8 % (18.3-44.2); Mean Corpuscular HGB Conc 32.7 g/dl (32-36); Mean Corpuscular Hemoglobin 30.8 pg (26-34); Mean Corpuscular Volume 94.1 fl (80-100); Mean Platelet Volume 12.4 fl (7.4-10.4); Monocytes Absolute Auto 0.7 K/mm3 (0.1-0.6); Monocytes Percent Auto 5.3 % (2.6-8.5); Neutrophils Absolute Auto 8.6 K/mm3 (1.3-6.7); Neutrophils Percent Auto 65.6 % (45.5-73.1); Platelet Count Result 246 k/mm3 (150-375); Red Blood Count 4.58 M/mm3 (4.2-5.4); Red Cell Distribution Width 13.2 % (11.5-14.5); White Blood Count 13.2 K/mm3 (4.5-10.0)
[2025-03-07 11:24] LABS: Alanine Aminotransferase 23 U/L (6-35); Alkaline Phosphatase 80 U/L (38-126); Anion Gap 5 mmol/L (4-12); Aspartate Amino Transferase 41 U/L (14-36); Bilirubin,Total 0.3 mg/dL (0.2-1.3); Blood Urea Nitrogen 12 mg/dL (7-17); Calcium 9.8 mg/dL (8.4-10.2); Carbon Dioxide 21 mmol/L (22-30); Chloride 111 mmol/L (98-107); Cholesterol 173 mg/dL (0-200); Estimated Glomerular Filt Rate > 60; Glucose 101 mg/dL (65-110); HDL Direct 35 mg/dL; Potassium 4.4 mmol/L (3.4-5.0); Sodium 137 mmol/L (137-145); Triglycerides 171 mg/dL (<150)
[2025-03-07 11:35] LABS: Hemoglobin A1C 5.9 % (<5.7); LDL Cholesterol Direct 102 mg/dL
[2025-03-07 11:44] LABS: Vitamin D 25 Hydroxy 41.2 ng/mL
[2025-03-09 21:28] LABS: Alpha-Tocopherol 13.8 mg/L (5.7-19.9); Beta-Gamma Tocopherol <1.0 mg/L (<4.4); Vitamin A 58 mcg/dL (38-98)
== END 2025-03-07 09:42 | disposition home or self-care (01) ==
LOC: ANHGOSHLAB 09:42
PROVIDERS: PCP Family Medicine; Visit Provider Nurse Practitioner
DX: K86.1 Other chronic pancreatitis (principal); R73.03 Prediabetes; E55.9 Vitamin D deficiency, unspecified
CPT/HCPCS: 36415; 80053; 80061; 82306; 83036; 84446; 84590; 84597; 85025

== ENCOUNTER 2025-06-19 08:35 | Outpatient (CLI) | payer OTHER, SELFPAY ==
--- NOTE | ~2025-06-19 | CT_ITS ---
EXAMINATION:CT lung screening DATE: 06/19/2025 08:56 INDICATION: Personal history of nicotine dependence. TECHNIQUE: Computed tomography (CT) of the chest was performed without intravenous contrast. Automated exposure control and iterative reconstruction technique were employed. The dose-length product (DLP) was 68.69 mGy-cm. COMPARISON: Chest CT 06/15/2024 FINDINGS: There is mild emphysema. There is mild atelectasis bilaterally. Calcified left lung nodules and calcified left hilar lymph nodes are consistent with old granulomatous disease. No pleural effusion. The heart size is normal. There are coronary artery calcifications. No pericardial effusion. [place] cifications in the liver and spleen are consistent with old granulomatous disease. There is pneumobilia in the liver, likely secondary to sphincterotomy. There are changes of anterior fusion procedure in cervical spine. There is mild thoracic spondylosis. There is an old right rib defect. IMPRESSION: 1. Lung-RADS category 1: Negative. Continue annual screening with noncontrast low-dose chest CT in 12 months. Reviewed, dictated and finalized at location E. IMPRESSION: 1. Lung-RADS category 1: Negative. Continue annual screening with noncontrast l ow-dose chest CT in 12 months.
== END 2025-06-19 08:36 | disposition home or self-care (01) ==
LOC: MICIMG 08:36
PROVIDERS: PCP Family Medicine; Visit Provider Nurse Practitioner
DX: Z12.2 Encounter for screening for malignant neoplasm of respiratory organs (principal); Z87.891 Personal history of nicotine dependence
CPT/HCPCS: 71271

== ENCOUNTER 2025-07-18 12:17 | Outpatient (CLI) | payer OTHER, SELFPAY ==
--- NOTE | ~2025-07-18 | DEXA_ITS ---
Bone Density Report Name: MARI VILLALOBOS Age: 69 Sex: Female Ethnicity: White Date of : 1955 Indication: osteopenia; Referring Provider: Shakira Bucio Study: Bone densitometry was performed. Exam Date: July 18, 2025 Accession number: [id number] Bone Density: Region BMD T-score Z-score Classification AP Spine(L1-L4) 0.899 -1.3 0.6 Osteopenia Femoral Neck (Left) 0.601 -2.2 -0.6 Osteopenia Total Hip (Left) 0.777 -1.3 0.0 Osteopenia Femoral Neck (Right) 0.627 -2.0 -0.3 Osteopenia Total Hip (Right) 0.767 -1.4 0.0 Osteopenia Total Hip Mean 0.772 -1.4 0.0 Osteopenia World Health Organization criteria for BMD impression classify patients as: Normal (T-score at or above -1.0), Osteopenia (T-score between -1.0 and -2.5), or Osteoporosis (T-score at or below -2.5). 10-year Fracture Risk(1): Major Osteoporotic Fracture 13% Hip Fracture 3.7% Reported Risk Factors: [place] (), Neck BMD=0.601, BMI=27.7, smoking (1) FRAX(R) Version 3.08. Fracture probability calculated for an untreated patient. Fracture probability may be lower if the patient has received treatment. Previous Exams: -- Region Exam Age BMD T-score BMD Change BMD Change Date g/cm2 vs Baseline vs Previous -- AP Spine (L1-L4) 07/18/2025 69 0.899 -1.3 -2.5% -2.5% 05/28/2023 67 0.922 -1.1 Total Hip(Left) 07/18/2025 69 0.777 -1.3 -4.9%* -4.9%* 05/28/2023 67 0.817 -1.0 Total Hip(Right) 07/18/2025 69 0.767 -1.4 -5.1%* -5.1%* 05/28/2023 67 0.808 -1.1 -- *Denotes significance at 95% confidence level, LSC for AP Spine = 0.022 g/cm2, LSC for Total Hip = 0.027 g/cm2 Clinical Information Provided by Patient: Smokes Has used the following medications: Vitamin D Has the following medical conditions: chronic pancreatitis Patient maximum height was 64 Menopause Age: 52 No regular weight bearing exercise Does not regularly consume dairy products Drinks caffeinated beverages Onset of menses at age 19 Number of children 2 Impression: The patient has low bone mass, based on the Left Femoral Neck T-score. The patient has an estimated ten-year risk of hip fracture of 3.7% and an estimated ten-year risk of major fracture of 13%, based on the WHO FRAX algorithm. The patient has risk factors, including: smoking. The BMD for the Total Hip(Left) decreased, changing by -4.9% since the last DXA exam. The BMD for the Total Hip(Right) decreased, changing by -5.1% since the last DXA exam. Discussion: BONE DENSITY IS LOW AT ONE OR MORE SKELETAL SITES. THE PATIENT'S BMD AND CLINICAL RISK FACTORS CONTRIBUTE TO THIS PATIENT'S INCREASED RISK OF FRACTURE. This patient's lowest T-score is low at one or more skeletal sites. It meets the World Health Organization's (WHO) criteria for ?low bone mass? (T-score between -1.0 and -2.5). The patient's 10-year risk of hip fracture as calculated by FRAX exceeds the threshold where pharmacological therapy is recommended by the National Osteoporosis Foundation (NOF). However, all treatment decisions require clinical judgment and consideration of individual patient factors, including patient preferences, comorbidities, previous drug use, risk factors not captured in the FRAX model (e.g., frailty, falls, vitamin D deficiency, increased bone turnover, interval significant decline in bone density) and possible under or overestimation of fracture risk by FRAX. The patient should follow a healthful lifestyle (good nutrition with adequate calcium and vitamin D, and appropriate weight-bearing exercise). Follow-Up: Consider a repeat BMD and Vertebral Fracture Assessment (VFA) exam in 2 years or sooner if medically necessary, to reassess this patient's status. Reported by: RUFUS on 07/18/2025 12:52:00 PM. Reviewed, dictated and finalized at location A.
== END 2025-07-18 12:18 | disposition home or self-care (01) ==
LOC: MICIMG 12:18
PROVIDERS: PCP Family Medicine; Visit Provider Nurse Practitioner
DX: Z78.0 Asymptomatic menopausal state (principal); M85.88 Other specified disorders of bone density and structure, other site; M85.852 Other specified disorders of bone density and structure, left thigh; M85.851 Other specified disorders of bone density and structure, right thigh
CPT/HCPCS: 77080

== ENCOUNTER 2025-10-10 12:44 | Outpatient (CLI) | payer OTHER, SELFPAY ==
--- NOTE | ~2025-10-10 | MM_ITS ---
EXAMINATION: MM screening [facility] BI w [facility] HISTORY: Z12.39 - Encounter for other screening for malignant neop... TECHNIQUE: Craniocaudal and mediolateral oblique 3-D tomosynthesis images were obtained and synthetic 2-D images were generated. CAD analysis was submitted and interpreted. COMPARISON: 2022 BREAST PARENCHYMAL COMPOSITION: There are scattered areas of fibroglandular tissue. FINDINGS: There are multiple, bilateral, circumscribed nodules/masses, a benign finding. No suspicious masses are seen. There are no suspicious calcifications. No unexplained architectural distortion is seen. There are no skin or nipple abnormalities identified. There is no adenopathy seen on the images submitted. IMPRESSION: No mammographic evidence to suggest malignancy is seen. The patient may return to screening mammography as per ACR guidelines. BI-RADS 2 - Benign. Reviewed, dictated and finalized at location C. EMENT ASSISTANT
== END 2025-10-10 12:45 | disposition home or self-care (01) ==
LOC: MICIMG 12:45
PROVIDERS: PCP Family Medicine; Visit Provider Nurse Practitioner
DX: Z12.31 Encounter for screening mammogram for malignant neoplasm of breast (principal)
CPT/HCPCS: 77063; 77067